=== PATIENT | male | born 1995 | race Caucasian/White ===

== ENCOUNTER 2019-05-21 21:07 | Emergency (ER) | payer BC, OTHER ==
[2019-05-21 21:20] VITALS: BP 165/79; PULSE 96; RESP 17; TEMP 98.6
--- NOTE | 2019-05-21 21:23 | ED ---
General Adult HPI - General Chief complaint: Skin/Abscess/Foreign Body Stated complaint: Thumb Injury, [facility] Time Seen by Provider: 05/21/19 21:15 Source: patient Mode of arrival: ambulatory - History of Present Illness Initial comments: Dictation was produced using [employer] dictation software. please excuse any grammatical, word or spelling errors. Chief Complaint: 23-year-old male presents with right thumb abrasion History of Present Illness: A 23-year-old male. 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 No other complaints. States that he scratched his thumb on a oxygen tank handle. The ROS documented in this emergency department record has been reviewed and confirmed by me. Those systems with pertinent positive or negative responses have been documented in the HPI. All other systems are other negative and/or noncontributory. PHYSICAL EXAM: General Impression: Alert and oriented x3, not in acute distress HEENT: Normocephalic atraumatic, extra-ocular movements intact, pupils equal and reactive to light bilaterally, mucous membranes moist. Cardiovascular: Heart regular rate and rhythm, S1&S2 audible, no murmurs, rubs or gallops Chest: Lungs clear to auscultation bilaterally, no rhonchi, no wheeze, no rales Abdomen: Bowel sounds present, abdomen soft, non-tender, non-distended, no organomegaly Musculoskeletal: Pulses present and equal in all extremities, no peripheral edema Motor: no focal deficits noted Neurological: CN II-XII grossly intact, no focal motor or sensory deficits noted Skin: Punctate superficial abrasion to the dorsum of the right thumb Psych: Normal affect and mood ED course: 23 y Old male with superficial thumb abrasion. Upon arrival are within acceptable limits. Injury appears to be extremely minor. He states that this is a requirement by his employer. No further intervention indicated at this time. His tetanus is up-to-date. he is provided with a Band-Aid. - Related Data Home Medications Medication Instructions Recorded Confirmed No Known Home Medications 11/23/13 05/21/19 Allergies Allergy/AdvReac Type Severity Reaction Status Date / Time No Known Allergies Allergy Verified 05/21/19 21:19 Review of Systems ROS Statement: Those systems with pertinent positive or pertinent negative responses have been documented in the HPI. ROS Other: All systems not noted in ROS Statement are negative. Past Medical History Past Medical History: No Reported History History of Any Multi-Drug Resistant Organisms: None Reported Past Surgical History: No Surgical Hx Reported Past Psychological History: No Psychological Hx Reported Smoking Status: Current every day smoker Past Alcohol Use History: None Reported Past Drug Use History: None Reported Course Vital Signs 05/21/19 21:15 Temperature 98.6 F Pulse Rate 96 Respiratory 17 Rate Blood Pressure 165/79 O2 Sat by Pulse 98 Oximetry Disposition Clinical Impression: Abrasion Disposition: HOME SELF-CARE Condition: Good Instructions (If sedation given, give patient instructions): Abrasion (ED) Is patient prescribed a controlled substance at d/c from ED?: No Referrals: None,Stated [Primary Care Provider] - 1-2 days Time of Disposition: 21:23
== END 2019-05-21 21:29 | disposition home or self-care (01) ==
LOC: EC 21:07
DX: S60.311A Abrasion of right thumb, initial encounter (principal); F17.200 Nicotine dependence, unspecified, uncomplicated; X58.XXXA Exposure to other specified factors, initial encounter; Y92.69 Other specified industrial and construction area as the place of occurrence of the external cause; Y99.0 Civilian activity done for income or pay
CPT/HCPCS: 99283